=== PATIENT | male | born 1945 | race Native Hawaiian/Other Pacific Islander ===

== ENCOUNTER 2016-10-06 16:19 | Outpatient (CLI) | payer OTHER, BC | END 2016-10-06 17:20 | disposition home or self-care (01) | LOC: LABW 16:19 | DX: B35.1 Tinea unguium (principal) | CPT/HCPCS: 36415; 84450; 84460 ==

== ENCOUNTER 2016-11-10 14:42 | Outpatient (CLI) | payer OTHER, BC | END 2016-11-10 19:04 | disposition home or self-care (01) | LOC: LABW 14:42 | DX: B35.1 Tinea unguium (principal) | CPT/HCPCS: 36415; 84450; 84460 ==

== ENCOUNTER 2017-03-18 13:56 | Outpatient (CLI) | payer OTHER, BC | END 2017-03-18 19:33 | disposition home or self-care (01) | LOC: LABW 13:56 | DX: B35.1 Tinea unguium (principal) | CPT/HCPCS: 36415; 84450; 84460 ==

== ENCOUNTER 2017-05-09 14:16 | Outpatient (CLI) | payer OTHER, BC | END 2017-05-09 21:33 | disposition home or self-care (01) | LOC: LABW 14:16 | DX: K64.0 First degree hemorrhoids (principal) | CPT/HCPCS: 82272 ==

== ENCOUNTER 2018-02-20 10:24 | Outpatient (CLI) | payer OTHER, BC ==
[2018-02-20 10:59] LABS: PLATELET COUNT 134 K/uL (142-355)
[2018-02-20 11:03] LABS: POTASSIUM 5.2 mmol/L (3.6-5.2)
[2018-02-20 11:16] LABS: PARTIAL THROMBOPLASTIN TIME 26.8 SECONDS (24.5-33.6)
== END 2018-02-20 20:03 | disposition home or self-care (01) ==
LOC: LABW 10:24
PROVIDERS: Surgery
DX: Z01.810 Encounter for preprocedural cardiovascular examination (principal); Z01.812 Encounter for preprocedural laboratory examination; Z01.811 Encounter for preprocedural respiratory examination; I71.4 Abdominal aortic aneurysm, without rupture
CPT/HCPCS: 36415; 80048; 85027; 85610; 85730; 93005

== ENCOUNTER 2018-05-16 15:34 | Outpatient (CLI) | payer OTHER | END 2018-05-16 22:55 | disposition home or self-care (01) | LOC: LABW 15:34 | DX: K64.0 First degree hemorrhoids (principal) | CPT/HCPCS: 82272 ==

== ENCOUNTER 2018-06-02 11:01 | Outpatient (CLI) | payer OTHER ==
[2018-06-02 11:15] LABS: PLATELET COUNT 150 K/uL (142-355)
[2018-06-02 11:30] LABS: POTASSIUM 4.6 mmol/L (3.6-5.2)
== END 2018-06-02 20:09 | disposition home or self-care (01) ==
LOC: LABW 11:01
PROVIDERS: Surgery
DX: I71.4 Abdominal aortic aneurysm, without rupture (principal); N18.3 Chronic kidney disease, stage 3 (moderate)
CPT/HCPCS: 36415; 80048; 85027

== ENCOUNTER 2019-09-17 14:12 | Outpatient (CLI) | payer OTHER | END 2019-09-17 20:09 | disposition home or self-care (01) | LOC: LABW 14:12 | DX: K64.0 First degree hemorrhoids (principal) | CPT/HCPCS: 82272 ==

== ENCOUNTER 2019-12-28 10:53 | Outpatient (CLI) | payer OTHER | END 2019-12-28 23:58 | disposition home or self-care (01) | LOC: US 10:53 | DX: K40.20 Bilateral inguinal hernia, without obstruction or gangrene, not specified as recurrent (principal); R10.2 Pelvic and perineal pain ==

== ENCOUNTER 2020-02-27 11:35 | Day surgery (SDC) | payer OTHER ==
[2020-02-25 11:19] LABS: PLATELET COUNT 165 K/uL (142-355); POTASSIUM 4.2 mmol/L (3.6-5.2)
== END 2020-02-27 15:40 | disposition home or self-care (01) ==
LOC: OR 11:35
PROVIDERS: ATTEND Internal Medicine Gastroenterology
PROC: 0DB68ZZ Excision of Stomach, Via Natural or Artificial Opening Endoscopic (ICD-10-PCS; principal; 2020-02-27)
PROC: 0D738ZZ Dilation of Lower Esophagus, Via Natural or Artificial Opening Endoscopic (ICD-10-PCS; 2020-02-27)
DX: K22.2 Esophageal obstruction (principal); K29.50 Unspecified chronic gastritis without bleeding; B37.81 Candidal esophagitis; R13.19 Other dysphagia; K21.00 Gastro-esophageal reflux disease with esophagitis, without bleeding
CPT/HCPCS: 80053; 85027; J2704

== ENCOUNTER 2020-10-08 14:17 | Outpatient (CLI) | payer OTHER | END 2020-10-08 19:05 | disposition home or self-care (01) | LOC: US 14:17 | PROVIDERS: ATTEND Podiatrist | DX: M79.604 Pain in right leg (principal); M79.605 Pain in left leg; R60.1 Generalized edema ==

== ENCOUNTER 2021-04-06 13:27 | Outpatient (CLI) | payer OTHER | END 2021-04-06 19:02 | disposition home or self-care (01) | LOC: CT 13:27 | PROVIDERS: ATTEND Internal Medicine Critical Care Medicine | DX: R06.02 Shortness of breath (principal); J44.9 Chronic obstructive pulmonary disease, unspecified ==

== ENCOUNTER 2021-06-03 14:32 | Outpatient (CLI) | payer OTHER | END 2021-06-03 19:13 | disposition home or self-care (01) | LOC: LABW 14:32 | PROVIDERS: ATTEND Podiatrist | DX: M10.071 Idiopathic gout, right ankle and foot (principal) | CPT/HCPCS: 36415; 84550; 86140 ==

== ENCOUNTER 2021-08-13 09:20 | Outpatient (CLI) | payer OTHER | END 2021-08-13 19:14 | disposition home or self-care (01) | LOC: US 09:20 | PROVIDERS: ATTEND Internal Medicine Nephrology | DX: I12.9 Hypertensive chronic kidney disease with stage 1 through stage 4 chronic kidney disease, or unspecified chronic kidney disease (principal); N18.4 Chronic kidney disease, stage 4 (severe); I50.9 Heart failure, unspecified; J44.9 Chronic obstructive pulmonary disease, unspecified; N40.0 Benign prostatic hyperplasia without lower urinary tract symptoms; E11.22 Type 2 diabetes mellitus with diabetic chronic kidney disease; E03.8 Other specified hypothyroidism; D63.1 Anemia in chronic kidney disease; N25.81 Secondary hyperparathyroidism of renal origin; F41.9 Anxiety disorder, unspecified; K21.9 Gastro-esophageal reflux disease without esophagitis; E78.49 Other hyperlipidemia; G56.00 Carpal tunnel syndrome, unspecified upper limb; I25.118 Atherosclerotic heart disease of native coronary artery with other forms of angina pectoris; I71.4 Abdominal aortic aneurysm, without rupture; I48.92 Unspecified atrial flutter; J32.9 Chronic sinusitis, unspecified; R13.10 Dysphagia, unspecified; R00.2 Palpitations; R06.02 Shortness of breath ==

== ENCOUNTER 2022-03-08 17:44 | Emergency (ER) | payer OTHER ==
[~2022-03-08] VITALS: Ht 193 cm; Wt 114.8 kg
[2022-03-08 18:10] LABS: PLATELET COUNT 231 K/uL (142-355)
[2022-03-08 18:22] LABS: POTASSIUM 4.4 mmol/L (3.6-5.2)
[2022-03-08 22:30] VITALS: BP 121/71; TEMP 99.9
== END 2022-03-08 22:30 | disposition short-term general hospital (02) ==
LOC: ED 17:44
PROVIDERS: Emergency Medicine Emergency Medical Services
DX: J44.1 Chronic obstructive pulmonary disease with (acute) exacerbation (principal); I48.20 Chronic atrial fibrillation, unspecified; Z11.52 Encounter for screening for COVID-19
CPT/HCPCS: 36600; 80053; 82805; 83735; 83880; 84484; 85027; 85610; 87040; 87502; 87635; 87651; 93005; 94664; 96361; 96365; 96372; 96375; 99284; J1650; J1940; J2930; J3490; U0003